=== PATIENT | female | born 1955 | race Asian ===

== ENCOUNTER 2024-06-26 18:43 | Emergency (ER) | payer MEDICAID, MEDICARE, OTHER ==
[~2024-06-26] VITALS: Ht 152.4 cm; Wt 66.4 kg
[~2024-06-26 18:43] MED LIST: ALBU17AE27 IH; DIPH25CA85 PO; LISI10TA24 PO; MECL-302 PO
[2024-06-26 19:28] LABS: COVID AG,FIA SOURCE NASAL SWAB
[2024-06-26 19:49] LABS: SARS-COV2 (COVID) ANTIGEN,FIA Negative (Negative)
[2024-06-26 19:51] LABS: INFLUENZA TYPE A NEGATIVE FOR TYPE A (NEGATIVE); INFLUENZA TYPE B NEGATIVE FOR TYPE B (NEGATIVE)
[2024-06-26 21:31] LABS: BASOPHILS % (AUTO) 0.5 % (0.0-2.0); EOSINOPHILS % (AUTO) 2.3 % (1.0-6.0); HEMATOCRIT 42.6 % (36-46); HEMOGLOBIN 14.1 g/dL (12.0-16.0); LYMPHOCYTES % (AUTO) 20.4 % (22.0-44.0); MEAN CORPUSCULAR HEMOGLOBIN 28.2 pg (26.0-34.0); MEAN CORPUSCULAR HGB CONC 33.1 G/dL (31.0-37.0); MEAN CORPUSCULAR VOLUME 85 fL (80-100); MONOCYTES # (AUTO) 0.4 K/uL (0.1-1.0); MONOCYTES % (AUTO) 4.4 % (2.0-9.0); NEUTROPHILS % (AUTO) 72.4 % (40.0-70.0); PLATELET COUNT (AUTO) 275 K/uL (150-450); RED CELL DISTRIBUTION WIDTH 13.6 % (11.5-14.5); WHITE BLOOD COUNT (AUTO) 9.6 K/uL (4.5-11.0)
[2024-06-26 21:36] LABS: ANION GAP 7 mmol/L (8-16); CALCIUM, TOTAL 9.3 mg/dL (8.8-10.5); CARBON DIOXIDE 29 mmol/L (22-29); CHLORIDE 98 mmol/L (98-107); CREATININE 0.73 mg/dL (0.60-1.30); GLOMERULAR FILTR. RATE CALC > 60 mL/min (>60); GLUCOSE,RANDOM 156 mg/dL (70-110); POTASSIUM 4.5 mmol/L (3.5-5.1); SODIUM SERUM 134 mmol/L (136-145); UREA NITROGEN, BLOOD 13 mg/dL (7-18)
[2024-06-26 21:45] LABS: B-TYPE NATRIURETIC PEPTIDE 5 pg/mL (0-100); TROPONIN I-HIGH SENSITIVITY 5 ng/L (<51)
[2024-06-26] MEDS ORDERED: MELA3TAB89 PO (22:16)
[2024-06-26] MEDS ORDERED: BUDE10.27 IH (22:16)
[2024-06-26] MEDS ORDERED: BENZ-227 PO (22:16)
[2024-06-26 23:03] VITALS: BP 132/75; PULSE 71; RESP 18; TEMP 97.9; O2SAT 99
== END 2024-06-26 23:10 | disposition home or self-care (01) ==
LOC: EMS 19:14
DX: G47.00 Insomnia, unspecified (principal); R06.02 Shortness of breath; I10 Essential (primary) hypertension; J45.909 Unspecified asthma, uncomplicated; Z20.822 Contact with and (suspected) exposure to COVID-19
CPT/HCPCS: 71045; 80048; 83880; 84484; 85025; 85379; 87804; 93005; 99285; 36415-L1; 36415-TC